=== PATIENT | male | born 1955 | race Caucasian/White ===

== ENCOUNTER 2022-10-24 14:51 | Emergency (ER) | payer MEDICARE ==
[2022-10-24 14:59] VITALS: BP 170/92
--- NOTE | 2022-10-24 15:21 | ED Physician Documentation ---
PD HPI UPPER EXT INJURY - Stated complaint Stated Complaint: RT FINGER INJ - Chief complaint Chief Complaint: Laceration - History obtained from History obtained from: Patient (67-year-old right-handed gentleman who is up-to-date on tetanus was stacking filled buckets and pinched his fourth finger with a laceration on it. Also has mild pain of the third and fifth fingers as well. No other injuries.) - History of Present Illness Location: Right Timing - onset: Today PD PAST MEDICAL HISTORY - Present Medications Home Medications: Ambulatory Orders Medication Instructions Recorded Confirmed HYDROcod/ACETAM 5/325 [[place] 5/325] 1 - 2 tab PO Q6H PRN #15 tablet 10/24/22 cephALEXin [Keflex] 500 mg PO Q6H #20 cap 10/24/22 - Allergies Allergies/Adverse Reactions: Allergies Allergy/AdvReac Type Severity Reaction Status Date / Time No Known Drug Allergies Allergy Verified 10/24/22 14:59 PD ED PE NORMAL - Vitals Vital signs reviewed: Yes - General General: Alert and oriented X 3, No acute distress - Extremities Extremities: Other (There is a near circumferential laceration with nailbed avulsion of the right fourth finger at the tip. It is quite deep.) - Neuro Neuro: Alert and oriented X 3, Normal speech Results - Vitals Vitals: Vital Signs - 24 hr 10/24/22 14:56 Temperature 36.7 C Heart Rate 89 Respiratory 16 Rate Blood Pressure 170/92 H O2 Saturation 98 Oxygen O2 Source Room air - Rads (name of study) Three-view x-ray of the right hand demonstrates a tuft fracture of the fourth finger Relevant Findings:: Final report received, EMP independent interpretation of test Procedures - Laceration (location) Right fourth finger Length in cm: 3 Wound type: Curved Neurovascular status: Sensory intact, Motor intact, Vascular intact Anesthesia: Lidocaine 1% (digital block) Wound preparation: Hibiclens, Irrigated copiously NS Skin layer closure: Nylon, Interrupted, Size #-0 - enter number (4-0), Sutures - enter # (8) Other: Tetanus UTD - Splint (location) - Minor R 4th finger Splint applied by: Nurse Type of splint: Metal foam finger splint Other: Patient tolerated well, No complications, Neurovascular intact PD Medical Decision Making - ED course ED course: 67-year-old gentleman with significant laceration to the distal part of the right fourth finger. Thoroughly irrigated and closed after a digital block primarily. He tolerated this well. Placed in a splint and put on Keflex noting that he does have an open fracture. Advised on orthopedic follow-up. Departure - Departure Disposition: 01 Home, Self Care Clinical Impression: Open fracture of finger of right hand Qualifiers: Encounter type: initial encounter Finger: ring finger Phalanx: distal Fracture alignment: nondisplaced Qualified Code(s): S62.664B - Nondisplaced fracture of distal phalanx of right ring finger, initial encounter for open fracture Finger laceration Qualifiers: Encounter type: initial encounter Finger: ring finger Damage to nail status: with damage Foreign body presence: without foreign body Laterality: right Qualified Code(s): S61.314A - Laceration without foreign body of right ring finger with damage to nail, initial encounter Condition: Good Record reviewed to determine appropriate education?: Yes Instructions: ED Fx Finger Open Follow-Up: Orthopedic Care [Provider Group] Prescriptions: cephALEXin [Keflex] 500 mg PO Q6H #20 cap HYDROcod/ACETAM 5/325 [[place] 5/325] 1 - 2 tab PO Q6H PRN #15 tablet PRN Reason: Pain Comments: I sent your prescriptions electronically to the [facility] in [place]. You should follow-up with the orthopedic surgeon within the week for reevaluation and consideration of whether there is any specific treatment needed for the fracture. For wound care you can wash briefly with soap and water and then apply antibiotic ointment and a dressing, keep the finger splint on it. Come back for any signs of infection which would include: Redness, swelling, drainage, increased pain, or fevers. You can wash it soap and water. Keep it covered and moist with bacitracin ointment which is available over the counter; avoid neosporin. Follow-up with your physician in 14 days for suture removal. I am prescribing a short course of narcotic pain medication for you. These are potentially dangerous and addictive medications that should be used carefully. These medications may constipate you. Take an ipor-[id number]-[id number] stool softener (docusate) twice daily with plenty of water while taking these medications. If you go 24 hours without a bowel movement, take [id number] miralax, per package instructions. Do not drink or drive while taking these medications. If you received narcotic or sedating medications while in the emergency department, do not drive for 24 hours. Store this medication in a safe, secure place and out of reach of children. It is a violation of federal law to give or sell this medication to another person or to use in a manner other than prescribed. The ED will not refill narcotic prescriptions, including prescriptions lost or stolen. To dispose of unwanted medications: 1. [facility] at [address] in [place] has a medication drop box. They accept prescription medications (in pill form) Wednesday through Wednesday 9:00 a.m. to 5:00 p.m. 2. The [facility] [employer] accepts prescription medications (in pill form only) for disposal year round. Call for more information. 3. Contact the [facility] for the next [facility] sponsored prescription drug collection event. , [phone], or [phone]; Note that many narcotic pain relievers also contain Tylenol/acetaminophen. Please ensure that your total dose of acetaminophen from all sources does not exceed 3 g (3000 mg) per day. Discharge Date/Time: 10/24/22 16:15
[2022-10-24] MEDS ORDERED: cephALEXin 250 MG CAPSULE PO STA (15:39)
--- NOTE | 2022-10-24 15:44 | XRAY Report ---
PROCEDURE: Hand 3 View RT INDICATIONS: hand inj TECHNIQUE: 3 views of the hand(s) acquired. COMPARISON: None FINDINGS: Bones: There is a comminuted fractured seen involving the distal tip of the distal phalanx of the fo urth finger. No intra-articular involvement is seen. No suspicious bony lesions. Soft tissues: Associated soft tissue swelling is seen. IMPRESSION: Distal fourth finger fracture. Reviewed by: Zac Polk MD on 10/24/2022 2:43 PM AKSMITH Approved by: Zac Polk MD on 10/24/2022 2:43 PM AKSMITH Station ID: [id number]
== END 2022-10-24 16:15 | disposition home or self-care (01) ==
LOC: ED 14:51
DX: S62.664B Nondisplaced fracture of distal phalanx of right ring finger, initial encounter for open fracture (principal); X58.XXXA Exposure to other specified factors, initial encounter
CPT/HCPCS: 12002; 73130; 99283; 99284; A9270

== ENCOUNTER 2022-11-09 11:29 | Emergency (ER) | payer MEDICARE ==
[2022-11-09 11:44] VITALS: BP 172/97
--- NOTE | 2022-11-09 11:55 | ED Physician Documentation ---
PD HPI WOUND RECHECK - Stated complaint Stated Complaint: STITCHES REMOVAL - Chief complaint Chief Complaint: Wound - Histroy obtained from History obtained from: Patient (67-year-old gentleman presents for wound check and stitches removal. Was stitched to the tip of the right fourth finger approximately 2 weeks ago by me.) PD PAST MEDICAL HISTORY - Allergies Allergies/Adverse Reactions: Allergies Allergy/AdvReac Type Severity Reaction Status Date / Time No Known Drug Allergies Allergy Verified 11/09/22 11:44 PD ED PE NORMAL - Vitals Vital signs reviewed: Yes - General General: Alert and oriented X 3, No acute distress - Extremities Extremities: Other (Healing wound to the tip of the right fourth finger without signs of infection. Sutures had already been removed by the nurse on my exam.) - Neuro Neuro: Alert and oriented X 3, Normal speech Results - Vitals Vitals: Vital Signs - 24 hr 11/09/22 11:38 Temperature 36.7 C Heart Rate 97 Respiratory 16 Rate Blood Pressure 172/97 H O2 Saturation 98 Oxygen O2 Source Room air Departure - Departure Disposition: 01 Home, Self Care Clinical Impression: Visit for suture removal Condition: Good Record reviewed to determine appropriate education?: Yes Instructions: ED Wound Check Sutr Remove No Infec
== END 2022-11-09 11:57 | disposition home or self-care (01) ==
LOC: ED 11:29
DX: S61.214D Laceration without foreign body of right ring finger without damage to nail, subsequent encounter (principal); X58.XXXD Exposure to other specified factors, subsequent encounter
CPT/HCPCS: 99281; 99282